=== PATIENT | female | born 1985 | race Caucasian/White ===

== ENCOUNTER 2019-11-21 11:14 | Emergency (ER) | payer SELFPAY ==
[~2019-11-21] VITALS: Ht 162.6 cm; Wt 81.8 kg
[~2019-11-21 11:14] MED LIST: AMOXICILLIN 8751 TAB PO; CLARITIN 1010 MG/TAB PO; GLUCOSE TEST ST1 DEV MC; LANTUS100 U/ML; LEVEMIR FLEX100 U/ML SQ; MOTRIN 800800 MG/TAB PO; NOVOLOG 100U100 U/M1 SQ; PRENATAL1 TA7 PO; PROAIR HFA0.09 MG/AC IH; TAMIFLU 75MG75 MG PO; TUSS PO; ZOLOFT 50MG50 MG PO; ZYRTEC 10MG10 MG PO; [UNRECOGNIZED DRUG - SUPPLY]
[2019-11-21 11:43] VITALS: TEMP 99
[2019-11-21 13:07] LABS: COLLECTION METHOD CLEAN CATCH
[2019-11-21 13:10] LABS: ALANINE AMINOTRANSFERASE 17 U/L (9-52); ALBUMIN 4.1 gm/dL (3.5-5.0); ALKALINE PHOSPHATASE 51 U/L (50-136); ANION GAP 11 mmol/L (7-16); AST,SGOT 24 U/L (15-37); BILIRUBIN,TOTAL 0.7 mg/dL (0.0-1.0); BLOOD UREA NITROGEN 12 mg/dL (7-17); CALCIUM 9.2 mg/dL (8.4-10.2); CARBON DIOXIDE 23 mmol/L (22-30); CHLORIDE 108 mmol/L (98-107); CREATININE, serum 0.52 (0.52-1.25); GLUCOSE 95 mg/dL (74-106); POTASSIUM 4.4 mmol/L (3.4-5.0); SODIUM 141 mmol/L (137-145); TOTAL PROTEIN 7.3 gm/dL (6.4-8.2)
[2019-11-21 13:15] LABS: MUCOUS Present /lpf; PH 6 (5-8); SQUAMOUS EPITHELIAL 0-2 /hpf; URINE APPEARANCE Clear; URINE BACTERIA Rare /hpf; URINE BILIRUBIN Negative (NEGATIVE); URINE BLOOD Negative (NEGATIVE); URINE COLOR Yellow; URINE GLUCOSE Negative (NEGATIVE); URINE KETONE Negative (NEGATIVE); URINE LEUKOCYTE ESTERASE Negative (NEGATIVE); URINE NITRATE Negative (NEGATIVE); URINE PROTEIN(semi-quant) Negative (NEGATIVE); URINE RBC 0-2 /hpf
[2019-11-21 13:23] LABS: TROPONIN-I < 0.012 ng/mL (0.000-0.035)
[2019-11-21 13:55] LABS: BASO % 0.7 % (0.0-2.0); EOS % 0.4 % (0-4.0); GRAN # 3.6 (1.4-6.5); GRAN % 80.9 % (42.2-75.2); HEMATOCRIT 38.6 % (37.0-47.0); HEMOGLOBIN 12.8 g/dl (12.5-16.0); LYMPH # 0.5 (1.2-3.4); LYMPH % 10.7 % (20.0-51.0); MEAN CELL VOLUME 89 fl (80.0-100.0); MEAN CORPUSCULAR HEMOGLOBIN 30 pg (27.0-31.0); MEAN CORPUSCULAR HGB CONC 33 g/dl (33.0-37.0); MEAN PLATELET VOLUME 11.2 fl (7.4-10.4); MONO # 0.3 (0.1-0.6); MONO % 6.9 % (1.7-9.3); PLATELET COUNT 190 K/mm3 (130-400); RED BLOOD COUNT 4.33 M/mm3 (4.10-5.30); REDCELL DISTRIBUTION WIDTH-CV 12.4 % (11.5-14.5)
[2019-11-21 14:13] LABS: MAGNESIUM 2.1 mg/dL (1.6-2.3)
[2019-11-21 16:29] VITALS: BP 117/68; PULSE 62
== END 2019-11-21 16:29 | disposition home or self-care (01) ==
LOC: COL.ER 11:14
PROVIDERS: Emergency Medicine
DX: S06.0X9A Concussion with loss of consciousness of unspecified duration, initial encounter (principal); R42 Dizziness and giddiness; F41.9 Anxiety disorder, unspecified; F32.9 Major depressive disorder, single episode, unspecified; W22.8XXA Striking against or struck by other objects, initial encounter; Y92.002 Bathroom of unspecified non-institutional (private) residence as the place of occurrence of the external cause
CPT/HCPCS: J1170; J1200; J1885; J2405; J2550; J7030; J7040